=== PATIENT | female | born 1975 | race Caucasian/White ===

== ENCOUNTER 2016-11-20 18:19 | Emergency (ER) | payer OTHER ==
[~2016-11-20] VITALS: Ht 162.6 cm; Wt 52.5 kg
[2016-11-20 19:05] LABS: EOSINOPHIL (%) 1.3 % (0-5); EOSINOPHIL COUNT 0.1 K/uL (0-0.3); HEMATOCRIT 33.4 % (36.0-46.0); IMMATURE GRANULOCYTE (%) 0.3 % (0.0-0.7); INSTRUMENT ABS NEUTROPHIL CT 4.5 K/uL; LYMPHOCYTE COUNT 1.1 K/uL (1.0-2.8); MCH 33.4 PG (29.0-34.0); MCHC 36.2 G/DL (30.0-36.0); MCV 92.3 FL (83-99); MEAN PLAT.VOLUME 8.6 uM^3 (9.5-12.4); MONOCYTE (%) 6.2 % (3-12); MONOCYTE COUNT 0.4 K/uL (0-0.8); NEUTROPHIL (%) 74.2 % (45-76); NEUTROPHIL COUNT 4.5 K/uL (1.8-6.4); PLATELET COUNT 159 K/uL (156-360); RBC DIS.WIDTH-SD 37.4 % (39-53); RED BLOOD COUNT 3.62 M/uL (3.80-5.20); WHITE BLOOD COUNT 6.1 K/uL (4.1-10.2)
[2016-11-20 19:22] LABS: CHLORIDE 101 mEq/L (99-109); POTASSIUM 3.8 mEq/L (3.7-5.4); SODIUM 135 mEq/L (136-147)
[2016-11-20 19:24] LABS: GLUCOSE 110 mg/dL (70-99)
[2016-11-20 19:25] LABS: ANION GAP 7 MEQ/L (2-14)
[2016-11-20 19:26] LABS: TOTAL BILIRUBIN 0.4 mg/dL (0.0-1.0)
[2016-11-20 19:28] LABS: ALKALINE PHOSPHATASE 75 IU/L (3-129)
[2016-11-20 19:29] LABS: GFR ESTIMATE (CALCULATED) > 59 mL/min/; UREA NITROGEN (BUN) 12 mg/dL (9-23)
[2016-11-20 19:31] LABS: CREATINE KINASE 61 IU/L (1-294); TOTAL CK 61 IU/L (1-294)
[2016-11-20 19:39] LABS: CK-MB 0.6 ng/mL (0.0-4.9)
[2016-11-20] MEDS ORDERED: MOTRIN600 MG PO (22:39)
[2016-11-20 23:22] VITALS: BP 128/78
== END 2016-11-20 23:15 | disposition home or self-care (01) ==
LOC: EME 18:19
PROVIDERS: Emergency Medicine
DX: M77.51 Other enthesopathy of right foot and ankle (principal); Y93.11 Activity, swimming; Y93.01 Activity, walking, marching and hiking; Z86.718 Personal history of other venous thrombosis and embolism; Z85.3 Personal history of malignant neoplasm of breast; Z92.21 Personal history of antineoplastic chemotherapy; Z90.13 Acquired absence of bilateral breasts and nipples; Z91.09 Other allergy status, other than to drugs and biological substances; Z88.1 Allergy status to other antibiotic agents
CPT/HCPCS: 73630; 80053; 82550; 82553; 85025; 93971; 99281; 99285; J1885; J7030